=== PATIENT | male | born 1965 | race Caucasian/White ===

== ENCOUNTER 2019-07-29 11:39 | Emergency (ER) | payer MEDICAID ==
[~2019-07-29] VITALS: Ht 182.9 cm; Wt 90.0 kg
[~2019-07-29 11:39] MED LIST: NORCO 7.5/325 T1 TA1 PO
[2019-07-29 11:46] VITALS: Ht 182.9 cm; Wt 90.0 kg
[2019-07-29 13:28] VITALS: BP 169/98
[2019-07-29] MEDS ORDERED: OMEPRAZOLE40 MG PO (13:38)
[2019-07-29] MEDS ORDERED: VOLTAREN75 MG PO (13:38)
== END 2019-07-29 13:58 | disposition home or self-care (01) ==
LOC: D.ER 11:39
DX: M25.511 Pain in right shoulder (principal); X50.0XXA Overexertion from strenuous movement or load, initial encounter; Y93.9 Activity, unspecified; Y92.9 Unspecified place or not applicable; K21.9 Gastro-esophageal reflux disease without esophagitis